=== PATIENT | female | born 1950 | race African-American/Black ===

== ENCOUNTER 2017-03-04 00:38 | Emergency (ER) | payer MEDICARE, MEDICAID ==
[~2017-03-04] VITALS: Ht 162.6 cm; Wt 84.0 kg
[2017-03-04 02:15] VITALS: BP 135/76
== END 2017-03-04 03:30 | disposition home or self-care (01) ==
LOC: ER 00:38
DX: M54.5 Low back pain (principal); I10 Essential (primary) hypertension; M32.9 Systemic lupus erythematosus, unspecified; Z98.890 Other specified postprocedural states; Z87.891 Personal history of nicotine dependence
CPT/HCPCS: 99281

== ENCOUNTER 2017-05-04 01:56 | Inpatient (IN) | payer MEDICARE, MEDICAID ==
[~2017-05-04] VITALS: Ht 162.6 cm; Wt 79.8 kg
[~2017-05-04 01:56] MED LIST: ATEN50TA PO; AZAT50TA24 PO; CALCIUM OYSTER SHELL PO; DAPSONE PO; FAMO20TA8 PO; FURO20TA4 PO; GABA-531 PO; NAPR-681 PO; NASOCORT
[2017-05-04] MEDS ORDERED: SODIUM CHLORIDE 0.9% 1,000 ML IV ONE (03:22)
[2017-05-04 03:49] LABS: BASOPHILS % 1.5 % (0.0-2.0); HEMATOCRIT. 35.3 % (36.0-48.0); HEMOGLOBIN. 11.6 g/dL (12.0-16.0); LYMPHOCYTES % 27.7 % (20.0-50.0); MEAN CORPUSCULAR HEMOGLOBIN 27.7 pg (28.0-32.0); MEAN CORPUSCULAR VOLUME 84.8 fL (81.0-99.0); MEAN PLATELET VOLUME 7.6 fl (7.4-10.4); MONOCYTES % 9.6 % (2.0-8.0); NEUTROPHILS % 59.2 % (40.0-76.0); PLATELET 298 x1000/uL (130-400); RED BLOOD CELL COUNT 4.16 mill/uL (4.2-5.4); RED CELL DISTRIBUTION WIDTH 16.4 % (11.6-14.6)
[2017-05-04 04:01] LABS: CARBON DIOXIDE 29 mEq/L (21-32); CHLORIDE 108 mEq/L (98-107)
[2017-05-04 04:04] LABS: TROPONIN I 0.03 ng/mL (0.00-0.04)
[2017-05-04 08:20] VITALS: BP 170/80
[2017-05-04] MEDS ORDERED: CLONIDINE 0.1MG TABLET PO PRN (11:15)
[2017-05-04] MEDS ORDERED: IPRATROPIUM/ALBUTEROL 0.5-3(2.5)MG/3ML NEB INH PRN (11:15)
[2017-05-04] MEDS ORDERED: DOCUSATE SODIUM 100MG CAPSULE PO PRN (11:15)
[2017-05-04] MEDS ORDERED: ACETAMINOPHEN 325MG TABLET PO PRN (11:15)
[2017-05-04 12:00] VITALS: BP 129/85
[2017-05-04] MEDS ORDERED: ENOXAPARIN 40MG/0.4ML SYR SUBCUT SCH (12:00)
[2017-05-04 16:00] VITALS: BP_SYST 140; BP_SYST 141; BP_SYST 150; BP_DIAS 81; BP_DIAS 86; BP_DIAS 90
[2017-05-04 17:22] LABS: CREATINE KINASE MB FRACTION 1.6 ng/mL (0.5-3.6); TROPONIN I 0.03 ng/mL (0.00-0.04)
[2017-05-04] MEDS: NAPROXEN 500MG TABLET PO SCH (18:29)
[2017-05-04 18:58] LABS: CLARITY URINE CLEAR (CLEAR); COLOR URINE YELLOW (YELLOW); GLUCOSE URINE NEGATIVE (NEGATIVE); KETONES URINE NEGATIVE (NEGATIVE); LEUKOCYTE ESTERASE URINE TRACE (NEGATIVE); NITRITE URINE NEGATIVE (NEGATIVE); OCCULT BLOOD URINE NEGATIVE (NEGATIVE); PROTEIN URINE NEGATIVE (NEGATIVE); SPECIFIC GRAVITY URINE 1.012 (1.005-1.030); UROBILINOGEN URINE 0.2 E.U./dL (0.2-1.0)
[2017-05-04 19:10] LABS: *AMPHETAMINES SCREEN URINE NEGATIVE (NEGATIVE); *BARBITURATES SCREEN URINE NEGATIVE (NEGATIVE); *BENZODIAZEPINES SCREEN URINE NEGATIVE (NEGATIVE); *COCAINE SCREEN URINE NEGATIVE (NEGATIVE); CANNABINOID URINE SCREEN NEGATIVE (NEGATIVE); METHADONE URINE SCREEN NEGATIVE (NEGATIVE); OPIATES URINE SCREEN NEGATIVE (NEGATIVE); PHENCYCLIDINE URINE SCREEN NEGATIVE (NEGATIVE)
[2017-05-04 20:00] VITALS: BP 125/70
[2017-05-05] VITALS: BP 121/71
[2017-05-05 00:28] LABS: CREATINE KINASE MB FRACTION 1.1 ng/mL (0.5-3.6); TROPONIN I 0.03 ng/mL (0.00-0.04)
[2017-05-05 04:00] VITALS: BP_SYST 146; BP_SYST 154; BP_SYST 159; BP_DIAS 86; BP_DIAS 87; BP_DIAS 96
[2017-05-05 08:00] VITALS: BP 151/93
[2017-05-05] MEDS ORDERED: AZATHIOPRINE 50MG TABLET PO SCH (09:00)
[2017-05-05] MEDS ORDERED: ATENOLOL 50 MG TABLET PO SCH (09:00)
[2017-05-05] MEDS ORDERED: FUROSEMIDE 20MG TABLET PO SCH ×2 (09:00)
[2017-05-05] MEDS ORDERED: DAPSONE 100MG TABLET PO SCH (09:00)
[2017-05-05] MEDS ORDERED: FAMOTIDINE 20MG TABLET PO SCH (09:00)
[2017-05-05] MEDS: NAPROXEN 500MG TABLET PO SCH (10:37)
[2017-05-05 12:00] VITALS: BP_SYST 117; BP_SYST 139; BP_SYST 147; BP_DIAS 77; BP_DIAS 83; BP_DIAS 89
[2017-05-05 16:00] VITALS: BP_SYST 130; BP_SYST 147; BP_DIAS 76; BP_DIAS 89
== END 2017-05-05 17:00 | disposition home or self-care (01) | DRG 312 ==
LOC: ER 02:24 → EDBEDREQ 05:19 → 6WST 05:26 → EDBEDREQ 05:49 → ENRESERV 07:06
PROVIDERS: ADMIT Internal Medicine Critical Care Medicine; ATTEND Internal Medicine Critical Care Medicine
DX: I95.1 Orthostatic hypotension (principal); M32.9 Systemic lupus erythematosus, unspecified; I11.9 Hypertensive heart disease without heart failure; G90.8 Other disorders of autonomic nervous system; G62.9 Polyneuropathy, unspecified; J44.9 Chronic obstructive pulmonary disease, unspecified; K21.9 Gastro-esophageal reflux disease without esophagitis; R29.6 Repeated falls; H93.13 Tinnitus, bilateral; M25.469 Effusion, unspecified knee; Z88.8 Allergy status to other drugs, medicaments and biological substances; Z88.2 Allergy status to sulfonamides; Z77.120 Contact with and (suspected) exposure to mold (toxic); Z79.899 Other long term (current) drug therapy
CPT/HCPCS: 36415; 70450; 71010; 80053; 80305; 81001; 82550; 82553; 83880; 84484; 85025; 93005; 96360; 97162; 99285; J1650; J7030; J7500

== ENCOUNTER → 2017-05-24 | Outpatient (CLI) | payer MEDICARE, MEDICAID ==
[~2017-05-24] MED LIST changes: -DAPSONE PO; -GABA-531 PO; -NASOCORT
== END | disposition home or self-care (01) ==
LOC: MRI 09:18
PROVIDERS: ATTEND Internal Medicine Critical Care Medicine
DX: M48.02 Spinal stenosis, cervical region (principal); M50.21 Other cervical disc displacement, high cervical region; M50.222 Other cervical disc displacement at C5-C6 level; M50.221 Other cervical disc displacement at C4-C5 level; M50.223 Other cervical disc displacement at C6-C7 level; R51 Headache
CPT/HCPCS: 70551; 72141

== ENCOUNTER 2017-08-10 08:46 | Emergency (ER) | payer MEDICARE, MEDICAID ==
[~2017-08-10] VITALS: Ht 162.6 cm; Wt 59.0 kg
[2017-08-10 08:52] VITALS: BP 159/92
== END 2017-08-10 11:35 | disposition home or self-care (01) ==
LOC: ER 08:58
DX: R05 Cough (principal); R50.9 Fever, unspecified; R42 Dizziness and giddiness; R06.02 Shortness of breath; R20.0 Anesthesia of skin; M32.9 Systemic lupus erythematosus, unspecified; Z87.891 Personal history of nicotine dependence; Z88.2 Allergy status to sulfonamides; Z88.8 Allergy status to other drugs, medicaments and biological substances
CPT/HCPCS: 71010; 87804; 99285

== ENCOUNTER 2017-10-06 15:11 | Inpatient (IN) | payer MEDICARE, MEDICAID ==
[~2017-10-06] VITALS: Ht 162.6 cm; Wt 72.6 kg
[2017-10-06 15:45] VITALS: BP 129/81
[2017-10-06] MEDS ORDERED: HYDROCODONE/ACETAMINOPHEN 5/325MG TABLET PO PRN (16:15)
[2017-10-06] MEDS: ACETAMINOPHEN 325MG TABLET PO PRN (16:52)
[2017-10-06] MEDS ORDERED: PROMETHAZINE HCL 25MG TABLET PO PRN (18:00)
[2017-10-06] MEDS ORDERED: ZOLPIDEM TARTRATE 5MG TABLET PO PRN (18:00)
[2017-10-06] MEDS ORDERED: LORAZEPAM 0.5MG TABLET PO PRN (18:00)
[2017-10-06] MEDS ORDERED: KETOROLAC 30MG/ML VIAL IV PRN (18:00)
[2017-10-06] MEDS: DICYCLOMINE HCL 20MG TABLET PO SCH ×2 (19:03→23:51)
[2017-10-06] MEDS: DOCUSATE SODIUM 100MG CAPSULE PO SCH (19:04)
[2017-10-06] MEDS: CEPHALEXIN 500MG CAPSULE PO SCH ×2 (19:04→23:51)
[2017-10-06 20:00] VITALS: BP 116/64
[2017-10-06] MEDS ORDERED: LACTATED RINGERS 1,000 ML IV ONE (20:00)
[2017-10-06] MEDS: CYCLOSPORINE, MODIFIED 25MG CAPSULE PO SCH (22:04)
[2017-10-06] MEDS: SUCRALFATE 1G TABLET PO SCH (22:04)
[2017-10-06] MEDS ORDERED: KETOROLAC 15MG/ML VIAL IV PRN (23:00)
[2017-10-07] MEDS: ACETAMINOPHEN 325MG TABLET PO PRN (02:13)
[2017-10-07 08:00] VITALS: BP 138/86
[2017-10-07] MEDS: DOCUSATE SODIUM 100MG CAPSULE PO SCH ×2 (08:36→18:02)
[2017-10-07] MEDS: PANTOPRAZOLE 40MG DR TABLET PO SCH (08:37)
[2017-10-07] MEDS: ATENOLOL 50 MG TABLET PO SCH (08:38)
[2017-10-07] MEDS: CEPHALEXIN 500MG CAPSULE PO SCH ×4 (08:39→21:43)
[2017-10-07] MEDS: PREDNISONE 20MG TABLET PO SCH (08:40)
[2017-10-07] MEDS: DICYCLOMINE HCL 20MG TABLET PO SCH ×4 (08:40→21:43)
[2017-10-07] MEDS: SUCRALFATE 1G TABLET PO SCH ×4 (08:41→21:43)
[2017-10-07] MEDS: SCOPOLAMINE HYDROBROMIDE PATCH 72HR TD SCH (08:43)
[2017-10-07 09:19] LABS: BASOPHILS % 0.4 % (0.0-2.0); EOSINOPHILS % 1.5 % (0.0-5.0); HEMATOCRIT. 27.3 % (36.0-48.0); HEMOGLOBIN. 8.8 g/dL (12.0-16.0); LYMPHOCYTES % 14.6 % (20.0-50.0); MEAN CORPUSCULAR HEMOGLOBIN 28.8 pg (28.0-32.0); MEAN CORPUSCULAR VOLUME 89.4 fL (81.0-99.0); MEAN PLATELET VOLUME 8.3 fl (7.4-10.4); NEUTROPHILS % 71.5 % (40.0-76.0); PLATELET 219 x1000/uL (130-400); RED BLOOD CELL COUNT 3.06 mill/uL (4.2-5.4); RED CELL DISTRIBUTION WIDTH 15.5 % (11.6-14.6)
[2017-10-07 09:39] LABS: CHLORIDE 107 mEq/L (98-107)
[2017-10-07 09:46] LABS: PREALBUMIN 6.1 mg/dL (20.0-40.0)
[2017-10-07] MEDS: CYCLOSPORINE, MODIFIED 25MG CAPSULE PO SCH ×2 (12:37→21:43)
[2017-10-07] MEDS: LACTULOSE 20G/30ML UDC PO SCH ×2 (12:42→16:00)
[2017-10-07] MEDS ORDERED: DOCUSATE SODIUM 100MG CAPSULE PO SCH (17:00)
[2017-10-07] MEDS ORDERED: BISACODYL 10MG SUPP PR SCH (18:00)
[2017-10-07 20:53] VITALS: BP 145/87
[2017-10-07] MEDS: POLYETHYLENE GLYCOL 3350 (17GM) 1 DOSE PACK PO SCH (21:00)
[2017-10-08 08:00] VITALS: BP 128/65
[2017-10-08] MEDS: DOCUSATE SODIUM 100MG CAPSULE PO SCH ×2 (09:00→17:00)
[2017-10-08] MEDS: CYCLOSPORINE, MODIFIED 25MG CAPSULE PO SCH ×2 (09:29→22:32)
[2017-10-08] MEDS: PANTOPRAZOLE 40MG DR TABLET PO SCH (09:30)
[2017-10-08] MEDS: SUCRALFATE 1G TABLET PO SCH ×4 (09:30→22:31)
[2017-10-08] MEDS: DICYCLOMINE HCL 20MG TABLET PO SCH ×4 (09:31→22:32)
[2017-10-08] MEDS: PREDNISONE 20MG TABLET PO SCH (09:31)
[2017-10-08] MEDS: CEPHALEXIN 500MG CAPSULE PO SCH ×4 (09:31→22:32)
[2017-10-08] MEDS: ATENOLOL 50 MG TABLET PO SCH (09:33)
[2017-10-08] MEDS: ACETAMINOPHEN 325MG TABLET PO PRN (09:34)
[2017-10-08 20:00] VITALS: BP 132/73
[2017-10-08] MEDS: POLYETHYLENE GLYCOL 3350 (17GM) 1 DOSE PACK PO SCH (21:00)
[2017-10-08] MEDS: ENOXAPARIN 40MG/0.4ML SYR SUBCUT SCH (22:31)
[2017-10-09 07:20] LABS: BASOPHILS % 0.4 % (0.0-2.0); EOSINOPHILS % 1.7 % (0.0-5.0); HEMATOCRIT. 24.9 % (36.0-48.0); HEMOGLOBIN. 8.1 g/dL (12.0-16.0); LYMPHOCYTES % 24.6 % (20.0-50.0); MEAN CORPUSCULAR HEMOGLOBIN 28.6 pg (28.0-32.0); MEAN PLATELET VOLUME 8.1 fl (7.4-10.4); MONOCYTES % 12.9 % (2.0-8.0); NEUTROPHILS % 60.4 % (40.0-76.0); PLATELET 283 x1000/uL (130-400); RED BLOOD CELL COUNT 2.83 mill/uL (4.2-5.4); RED CELL DISTRIBUTION WIDTH 15.6 % (11.6-14.6)
[2017-10-09 07:51] LABS: CHLORIDE 107 mEq/L (98-107)
[2017-10-09 08:00] VITALS: BP 140/89
[2017-10-09 08:02] LABS: PHOSPHORUS 2.3 mg/dL (2.5-4.9); TOTAL IRON BINDING CAPACITY 154 ug/dL (250-450)
[2017-10-09 08:07] LABS: FOLIC ACID (FOLATE) SERUM 5.5 ng/mL (>5.38)
[2017-10-09] MEDS: CYCLOSPORINE, MODIFIED 25MG CAPSULE PO SCH ×2 (08:13→22:15)
[2017-10-09] MEDS: CEPHALEXIN 500MG CAPSULE PO SCH ×4 (08:13→22:14)
[2017-10-09] MEDS: PANTOPRAZOLE 40MG DR TABLET PO SCH (08:14)
[2017-10-09] MEDS: DICYCLOMINE HCL 20MG TABLET PO SCH ×4 (08:14→22:15)
[2017-10-09] MEDS: SUCRALFATE 1G TABLET PO SCH ×4 (08:14→22:15)
[2017-10-09] MEDS: DOCUSATE SODIUM 100MG CAPSULE PO SCH ×2 (08:14→17:03)
[2017-10-09] MEDS: ATENOLOL 50 MG TABLET PO SCH (08:14)
[2017-10-09] MEDS: PREDNISONE 20MG TABLET PO SCH (08:14)
[2017-10-09 08:16] LABS: CLARITY URINE CLEAR (CLEAR); COLOR URINE YELLOW (YELLOW); KETONES URINE NEGATIVE (NEGATIVE); LEUKOCYTE ESTERASE URINE 2+ (NEGATIVE); NITRITE URINE NEGATIVE (NEGATIVE); OCCULT BLOOD URINE NEGATIVE (NEGATIVE); PH URINE 5.5 (4.5-8.0); PROTEIN URINE NEGATIVE (NEGATIVE); SPECIFIC GRAVITY URINE 1.018 (1.005-1.030)
[2017-10-09] MEDS: ACETAMINOPHEN 325MG TABLET PO PRN (08:22)
[2017-10-09] MEDS ORDERED: POTASSIUM CHLORIDE 20MEQ TABLET SR PO NR (14:45)
[2017-10-09] MEDS: POTASSIUM-SODIUM PHOSPHATE POWDER PACKET PO SCH ×2 (15:12→17:03)
[2017-10-09] MEDS: AMOXICILLIN 500 MG CAPSULE PO SCH ×2 (17:03→22:14)
[2017-10-09 20:00] VITALS: BP 122/70
[2017-10-09] MEDS: POLYETHYLENE GLYCOL 3350 (17GM) 1 DOSE PACK PO SCH (21:00)
[2017-10-09] MEDS: IRON SUCROSE COMPLEX 100 MG in SODIUM CHLORIDE 0.9% 100 ML IV SCH (22:13)
[2017-10-09] MEDS: ENOXAPARIN 40MG/0.4ML SYR SUBCUT SCH (22:16)
[2017-10-10 06:31] LABS: BASOPHILS % 0.4 % (0.0-2.0); EOSINOPHILS % 1.4 % (0.0-5.0); HEMATOCRIT. 25.8 % (36.0-48.0); HEMOGLOBIN. 8.5 g/dL (12.0-16.0); LYMPHOCYTES % 26.5 % (20.0-50.0); MEAN CORPUSCULAR HEMOGLOBIN 29.1 pg (28.0-32.0); MEAN CORPUSCULAR VOLUME 88.4 fL (81.0-99.0); MEAN PLATELET VOLUME 8.1 fl (7.4-10.4); MONOCYTES % 11.6 % (2.0-8.0); NEUTROPHILS % 60.1 % (40.0-76.0); PLATELET 316 x1000/uL (130-400); RED BLOOD CELL COUNT 2.92 mill/uL (4.2-5.4); RED CELL DISTRIBUTION WIDTH 15.9 % (11.6-14.6)
[2017-10-10 06:48] LABS: CHLORIDE 106 mEq/L (98-107)
[2017-10-10 08:00] VITALS: BP 151/84
[2017-10-10] MEDS: DOCUSATE SODIUM 100MG CAPSULE PO SCH ×2 (09:57→17:00)
[2017-10-10] MEDS: CEPHALEXIN 500MG CAPSULE PO SCH ×4 (09:57→21:18)
[2017-10-10] MEDS: SUCRALFATE 1G TABLET PO SCH ×4 (09:58→21:18)
[2017-10-10] MEDS: PREDNISONE 20MG TABLET PO SCH (09:58)
[2017-10-10] MEDS: PANTOPRAZOLE 40MG DR TABLET PO SCH (09:58)
[2017-10-10] MEDS: CYCLOSPORINE, MODIFIED 25MG CAPSULE PO SCH ×2 (09:58→21:20)
[2017-10-10] MEDS: ATENOLOL 50 MG TABLET PO SCH (10:02)
[2017-10-10] MEDS: DICYCLOMINE HCL 20MG TABLET PO SCH ×4 (10:02→21:19)
[2017-10-10] MEDS: ACETAMINOPHEN 325MG TABLET PO PRN (10:02)
[2017-10-10] MEDS: SCOPOLAMINE HYDROBROMIDE PATCH 72HR TD SCH (10:03)
[2017-10-10] MEDS: POTASSIUM-SODIUM PHOSPHATE POWDER PACKET PO SCH (10:22)
[2017-10-10] MEDS: AMOXICILLIN 500 MG CAPSULE PO SCH ×2 (10:22→17:54)
[2017-10-10] MEDS: LACTULOSE 20G/30ML UDC PO SCH ×2 (16:15→20:15)
[2017-10-10 20:00] VITALS: BP 149/75
[2017-10-10] MEDS: POLYETHYLENE GLYCOL 3350 (17GM) 1 DOSE PACK PO SCH (21:00)
[2017-10-10] MEDS: IRON SUCROSE COMPLEX 100 MG in SODIUM CHLORIDE 0.9% 100 ML IV SCH (21:18)
[2017-10-10] MEDS: ENOXAPARIN 40MG/0.4ML SYR SUBCUT SCH (21:22)
[2017-10-11] MEDS: AMOXICILLIN 500 MG CAPSULE PO SCH ×3 (01:17→17:37)
[2017-10-11] MEDS: ACETAMINOPHEN 325MG TABLET PO PRN (03:52)
[2017-10-11 07:01] LABS: HEMATOCRIT. 23.8 % (36.0-48.0); HEMOGLOBIN. 7.8 g/dL (12.0-16.0); MEAN CORPUSCULAR HEMOGLOBIN 29.4 pg (28.0-32.0); MEAN CORPUSCULAR VOLUME 89.5 fL (81.0-99.0); MEAN PLATELET VOLUME 8.1 fl (7.4-10.4); PLATELET 325 x1000/uL (130-400); RED BLOOD CELL COUNT 2.66 mill/uL (4.2-5.4); RED CELL DISTRIBUTION WIDTH 15.9 % (11.6-14.6)
[2017-10-11 08:00] VITALS: BP 128/66
[2017-10-11] MEDS: DOCUSATE SODIUM 100MG CAPSULE PO SCH (08:53)
[2017-10-11] MEDS: SUCRALFATE 1G TABLET PO SCH ×4 (08:53→20:46)
[2017-10-11] MEDS: CEPHALEXIN 500MG CAPSULE PO SCH ×4 (08:54→20:46)
[2017-10-11] MEDS: PANTOPRAZOLE 40MG DR TABLET PO SCH (08:54)
[2017-10-11] MEDS: PREDNISONE 20MG TABLET PO SCH (08:54)
[2017-10-11] MEDS: ATENOLOL 50 MG TABLET PO SCH (08:55)
[2017-10-11] MEDS: CYCLOSPORINE, MODIFIED 25MG CAPSULE PO SCH ×2 (08:55→20:46)
[2017-10-11] MEDS: DICYCLOMINE HCL 20MG TABLET PO SCH ×4 (08:56→20:46)
[2017-10-11 13:41] LABS: NUCLEATED RED BLOOD CELLS 1 /100 WBC; PLATELET ESTIMATE NORMAL
[2017-10-11] MEDS: FAMOTIDINE 20MG TABLET PO SCH (17:37)
[2017-10-11 19:07] LABS: RNP ANTIBODY 0.2 AI (0.0-0.9); SMITH ANTIBODY < 0.2 AI (0.0-0.9)
[2017-10-11 20:00] VITALS: BP 143/84
[2017-10-11] MEDS ORDERED: LORAZEPAM 0.5MG TABLET PO PRN (20:15)
[2017-10-11] MEDS: ENOXAPARIN 40MG/0.4ML SYR SUBCUT SCH (20:46)
[2017-10-11] MEDS: IRON SUCROSE COMPLEX 100 MG in SODIUM CHLORIDE 0.9% 100 ML IV SCH (20:46)
[2017-10-12] MEDS: ACETAMINOPHEN 325MG TABLET PO PRN ×2 (01:44→08:26)
[2017-10-12] MEDS: AMOXICILLIN 500 MG CAPSULE PO SCH ×2 (01:44→10:52)
[2017-10-12 05:14] LABS: ANTI-DNA DOUBLE STRANDED QUANT 55 IU/mL (0-9)
[2017-10-12] MEDS: DOCUSATE SODIUM 100MG CAPSULE PO SCH ×2 (05:51→05:53)
[2017-10-12 08:00] VITALS: BP 142/86
[2017-10-12] MEDS: SUCRALFATE 1G TABLET PO SCH ×4 (08:21→20:59)
[2017-10-12] MEDS: CEPHALEXIN 500MG CAPSULE PO SCH ×3 (08:21→17:19)
[2017-10-12] MEDS: DICYCLOMINE HCL 20MG TABLET PO SCH ×4 (08:22→20:59)
[2017-10-12] MEDS: PREDNISONE 20MG TABLET PO SCH (08:22)
[2017-10-12] MEDS: ATENOLOL 50 MG TABLET PO SCH (08:22)
[2017-10-12] MEDS: FAMOTIDINE 20MG TABLET PO SCH ×2 (08:22→17:19)
[2017-10-12] MEDS: CYCLOSPORINE, MODIFIED 25MG CAPSULE PO SCH ×2 (08:23→20:59)
[2017-10-12 14:19] LABS: ANA IFA Negative (.)
[2017-10-12 20:00] VITALS: BP 136/76
[2017-10-12] MEDS: ENOXAPARIN 40MG/0.4ML SYR SUBCUT SCH (20:59)
[2017-10-12] MEDS: IRON SUCROSE COMPLEX 100 MG in SODIUM CHLORIDE 0.9% 100 ML IV SCH (20:59)
[2017-10-13] MEDS: DOCUSATE SODIUM 100MG CAPSULE PO SCH (05:31)
[2017-10-13 08:00] VITALS: BP 156/86
[2017-10-13] MEDS: PREDNISONE 20MG TABLET PO SCH (08:11)
[2017-10-13] MEDS: SUCRALFATE 1G TABLET PO SCH ×4 (08:11→21:30)
[2017-10-13] MEDS: FAMOTIDINE 20MG TABLET PO SCH ×2 (08:12→17:30)
[2017-10-13] MEDS: DICYCLOMINE HCL 20MG TABLET PO SCH ×4 (08:12→21:30)
[2017-10-13] MEDS: ATENOLOL 50 MG TABLET PO SCH (08:12)
[2017-10-13] MEDS: CYCLOSPORINE, MODIFIED 25MG CAPSULE PO SCH ×2 (08:13→20:28)
[2017-10-13] MEDS: SCOPOLAMINE HYDROBROMIDE PATCH 72HR TD SCH (08:17)
[2017-10-13 08:22] LABS: BASOPHILS % 0.2 % (0.0-2.0); EOSINOPHILS % 1.2 % (0.0-5.0); HEMATOCRIT. 26.9 % (36.0-48.0); HEMOGLOBIN. 8.4 g/dL (12.0-16.0); LYMPHOCYTES % 28.9 % (20.0-50.0); MEAN CORPUSCULAR HEMOGLOBIN 27.9 pg (28.0-32.0); MEAN CORPUSCULAR VOLUME 89.3 fL (81.0-99.0); MEAN PLATELET VOLUME 7.5 fl (7.4-10.4); NEUTROPHILS % 60.7 % (40.0-76.0); PLATELET 455 x1000/uL (130-400); RED BLOOD CELL COUNT 3.01 mill/uL (4.2-5.4); RED CELL DISTRIBUTION WIDTH 16.1 % (11.6-14.6)
[2017-10-13 08:52] LABS: CHLORIDE 105 mEq/L (98-107)
[2017-10-13] MEDS: ACETAMINOPHEN 325MG TABLET PO PRN (09:12)
[2017-10-13 20:00] VITALS: BP 151/82
[2017-10-13] MEDS: ENOXAPARIN 40MG/0.4ML SYR SUBCUT SCH (20:28)
[2017-10-13] MEDS: IRON SUCROSE COMPLEX 100 MG in SODIUM CHLORIDE 0.9% 100 ML IV SCH (21:30)
[2017-10-14 04:09] LABS: 25-HYDROXY VITAMIN D3 2.9 ng/mL (.)
[2017-10-14] MEDS: DOCUSATE SODIUM 100MG CAPSULE PO SCH (05:49)
[2017-10-14 08:00] VITALS: BP 161/85
[2017-10-14] MEDS: ACETAMINOPHEN 325MG TABLET PO PRN ×2 (08:01→14:29)
[2017-10-14] MEDS: SUCRALFATE 1G TABLET PO SCH ×4 (08:01→21:43)
[2017-10-14] MEDS: FAMOTIDINE 20MG TABLET PO SCH ×2 (08:01→17:01)
[2017-10-14] MEDS: DICYCLOMINE HCL 20MG TABLET PO SCH ×4 (08:02→21:43)
[2017-10-14] MEDS: PREDNISONE 20MG TABLET PO SCH (08:02)
[2017-10-14] MEDS: CYCLOSPORINE, MODIFIED 25MG CAPSULE PO SCH ×2 (08:03→21:43)
[2017-10-14] MEDS: ATENOLOL 50 MG TABLET PO SCH (08:04)
[2017-10-14 20:00] VITALS: BP 136/71
[2017-10-14] MEDS: ENOXAPARIN 40MG/0.4ML SYR SUBCUT SCH (21:44)
[2017-10-15] MEDS: DOCUSATE SODIUM 100MG CAPSULE PO SCH (05:30)
[2017-10-15 08:00] VITALS: BP 174/91
[2017-10-15] MEDS: CYCLOSPORINE, MODIFIED 25MG CAPSULE PO SCH ×2 (09:21→21:23)
[2017-10-15] MEDS: SUCRALFATE 1G TABLET PO SCH ×4 (09:21→21:23)
[2017-10-15] MEDS: FAMOTIDINE 20MG TABLET PO SCH (09:22)
[2017-10-15] MEDS: DICYCLOMINE HCL 20MG TABLET PO SCH ×4 (09:22→21:23)
[2017-10-15] MEDS: ATENOLOL 50 MG TABLET PO SCH (09:23)
[2017-10-15] MEDS: ACETAMINOPHEN 325MG TABLET PO PRN (11:25)
[2017-10-15] MEDS: METRONIDAZOLE 250MG TABLET PO SCH ×2 (13:00→17:16)
[2017-10-15] MEDS ORDERED: ERGOCALCIFEROL 50000UNITS CAPSULE PO SCH (17:00)
[2017-10-15 20:00] VITALS: BP 116/68
[2017-10-15] MEDS: ENOXAPARIN 40MG/0.4ML SYR SUBCUT SCH (21:22)
[2017-10-16] MEDS: METRONIDAZOLE 250MG TABLET PO SCH ×4 (00:05→17:41)
[2017-10-16 07:18] LABS: BASOPHILS % 0.7 % (0.0-2.0); EOSINOPHILS % 1.9 % (0.0-5.0); HEMATOCRIT. 28.3 % (36.0-48.0); HEMOGLOBIN. 9.1 g/dL (12.0-16.0); LYMPHOCYTES % 22.5 % (20.0-50.0); MEAN CORPUSCULAR HEMOGLOBIN 29.2 pg (28.0-32.0); MEAN CORPUSCULAR VOLUME 90.9 fL (81.0-99.0); MEAN PLATELET VOLUME 7.4 fl (7.4-10.4); MONOCYTES % 8.3 % (2.0-8.0); NEUTROPHILS % 66.6 % (40.0-76.0); PLATELET 461 x1000/uL (130-400); RED BLOOD CELL COUNT 3.11 mill/uL (4.2-5.4); RED CELL DISTRIBUTION WIDTH 17.6 % (11.6-14.6)
[2017-10-16 07:29] LABS: CHLORIDE 104 mEq/L (98-107)
[2017-10-16 08:00] VITALS: BP 139/82
[2017-10-16] MEDS: ATENOLOL 50 MG TABLET PO SCH (09:07)
[2017-10-16] MEDS: CYCLOSPORINE, MODIFIED 25MG CAPSULE PO SCH ×2 (09:07→20:38)
[2017-10-16] MEDS: SUCRALFATE 1G TABLET PO SCH ×2 (09:08→12:30)
[2017-10-16] MEDS: PREDNISONE 20MG TABLET PO SCH (09:09)
[2017-10-16] MEDS: DICYCLOMINE HCL 20MG TABLET PO SCH ×4 (09:09→20:38)
[2017-10-16] MEDS: SCOPOLAMINE HYDROBROMIDE PATCH 72HR TD SCH (09:11)
[2017-10-16] MEDS: ACETAMINOPHEN 325MG TABLET PO PRN (09:12)
[2017-10-16 20:00] VITALS: BP 122/78
[2017-10-16] MEDS: ENOXAPARIN 40MG/0.4ML SYR SUBCUT SCH (20:37)
[2017-10-17] MEDS: METRONIDAZOLE 250MG TABLET PO SCH ×3 (00:41→12:22)
[2017-10-17] MEDS: ACETAMINOPHEN 325MG TABLET PO PRN (05:38)
[2017-10-17 08:00] VITALS: BP 148/82
[2017-10-17] MEDS: PREDNISONE 20MG TABLET PO SCH (08:37)
[2017-10-17] MEDS: DICYCLOMINE HCL 20MG TABLET PO SCH ×2 (08:38→12:22)
[2017-10-17] MEDS: CYCLOSPORINE, MODIFIED 25MG CAPSULE PO SCH (08:38)
[2017-10-17] MEDS: ATENOLOL 50 MG TABLET PO SCH (08:39)
[2017-10-17 11:05] VITALS: BP 140/80
[2017-10-18 05:26] LABS: COMPLEMENT C3 137 mg/dL (82-167)
== END 2017-10-17 13:23 | disposition home health service (06) | DRG 554 ==
LOC: UNDOADMIN 15:44
PROVIDERS: ADMIT Physical Medicine & Rehabilitation Spinal Cord Injury Medicine; ATTEND Internal Medicine Critical Care Medicine
DX: M17.11 Unilateral primary osteoarthritis, right knee (principal); E46 Unspecified protein-calorie malnutrition; M32.9 Systemic lupus erythematosus, unspecified; K56.7 Ileus, unspecified; E87.1 Hypo-osmolality and hyponatremia; F33.1 Major depressive disorder, recurrent, moderate; E83.39 Other disorders of phosphorus metabolism; Z96.651 Presence of right artificial knee joint; R50.82 Postprocedural fever; Z82.49 Family history of ischemic heart disease and other diseases of the circulatory system; Z87.891 Personal history of nicotine dependence; K21.9 Gastro-esophageal reflux disease without esophagitis; J45.909 Unspecified asthma, uncomplicated; J42 Unspecified chronic bronchitis; I10 Essential (primary) hypertension; Z88.2 Allergy status to sulfonamides; Z88.1 Allergy status to other antibiotic agents; Z88.8 Allergy status to other drugs, medicaments and biological substances; E66.9 Obesity, unspecified; Z68.27 Body mass index [BMI] 27.0-27.9, adult; R62.7 Adult failure to thrive; K29.70 Gastritis, unspecified, without bleeding; J44.9 Chronic obstructive pulmonary disease, unspecified; R53.81 Other malaise; M79.609 Pain in unspecified limb; R26.9 Unspecified abnormalities of gait and mobility; E87.6 Hypokalemia; D50.9 Iron deficiency anemia, unspecified; J34.0 Abscess, furuncle and carbuncle of nose; L93.0 Discoid lupus erythematosus; L56.8 Other specified acute skin changes due to ultraviolet radiation; M13.0 Polyarthritis, unspecified; D72.810 Lymphocytopenia; K59.00 Constipation, unspecified; I49.9 Cardiac arrhythmia, unspecified; D72.829 Elevated white blood cell count, unspecified; H93.19 Tinnitus, unspecified ear; F41.9 Anxiety disorder, unspecified
CPT/HCPCS: 36415; 73560; 80048; 80053; 81003; 82270; 82306; 82607; 82728; 82746; 82962; 83540; 83550; 83735; 84100; 84134; 84443; 84630; 85025; 86160; 86225; 86235; 86256; 87086; 93922; 93970; 97110; 97116; 97162; 97167; 97530; 97535; J1650; J7040; J7050; J7120; J7512; J7515

== ENCOUNTER 2018-05-09 16:45 | Inpatient (IN) | payer MEDICARE, MEDICAID ==
[~2018-05-09] VITALS: Ht 162.6 cm; Wt 76.7 kg
[2018-05-09 17:00] VITALS: BP 136/84
[2018-05-09] MEDS ORDERED: IPRATROPIUM/ALBUTEROL 0.5-3(2.5)MG/3ML NEB HHN PRN (18:00)
[2018-05-09] MEDS ORDERED: ONDANSETRON HCL 4MG/2ML INJ IV PRN (18:00)
[2018-05-09] MEDS ORDERED: ACETAMINOPHEN 325MG TABLET PO PRN (18:00)
[2018-05-09 19:08] VITALS: BP 136/84
[2018-05-09 20:00] VITALS: BP 110/67
[2018-05-10] MEDS: HYDROCODONE/ACETAMINOPHEN 5/325MG TABLET PO PRN ×2 (00:41→18:43)
[2018-05-10 08:18] LABS: BASOPHILS % 0.2 % (0.0-2.0); EOSINOPHILS % 0.7 % (0.0-5.0); HEMATOCRIT. 34.6 % (36.0-48.0); HEMOGLOBIN. 11.4 g/dL (12.0-16.0); MEAN CORPUSCULAR HEMOGLOBIN 29.1 pg (28.0-32.0); MEAN CORPUSCULAR VOLUME 88.5 fL (81.0-99.0); MEAN PLATELET VOLUME 7.2 fl (7.4-10.4); MONOCYTES % 4.5 % (2.0-8.0); NEUTROPHILS % 82.6 % (40.0-76.0); PLATELET 275 x1000/uL (130-400); RED BLOOD CELL COUNT 3.91 mill/uL (4.2-5.4); RED CELL DISTRIBUTION WIDTH 17.2 % (11.6-14.6)
[2018-05-10 08:25] VITALS: BP 101/70
[2018-05-10 08:51] LABS: CHLORIDE 101 mEq/L (98-107)
[2018-05-10] MEDS: FAMOTIDINE 20MG TABLET PO SCH (09:00)
[2018-05-10] MEDS: DOCUSATE SODIUM 100MG CAPSULE PO SCH ×2 (09:40→18:41)
[2018-05-10] MEDS: FOLIC ACID 1MG TABLET PO SCH (09:40)
[2018-05-10] MEDS: ASPIRIN 325MG TABLET PO SCH (09:40)
[2018-05-10] MEDS ORDERED: BISACODYL 10MG SUPP PR NR (09:45)
[2018-05-10] MEDS ORDERED: BISACODYL 5MG TABLET PO PRN (09:45)
[2018-05-10] MEDS: ATENOLOL 50 MG TABLET PO SCH (09:47)
[2018-05-10] MEDS: AMLODIPINE 10MG TABLET PO SCH (09:47)
[2018-05-10] MEDS: ENOXAPARIN 40MG/0.4ML SYR SUBCUT SCH (18:41)
[2018-05-10] MEDS: LACTULOSE 20G/30ML UDC PO SCH ×3 (18:42→21:00)
[2018-05-10 20:00] VITALS: BP 109/64
[2018-05-10] MEDS: POLYETHYLENE GLYCOL 3350 (17GM) 1 DOSE PACK PO SCH (21:00)
[2018-05-11] MEDS ORDERED: BISACODYL 10MG SUPP PR SCH (04:30)
[2018-05-11] MEDS: HYDROCODONE/ACETAMINOPHEN 5/325MG TABLET PO PRN (06:52)
[2018-05-11 08:00] VITALS: BP 109/69
[2018-05-11] MEDS: AMLODIPINE 10MG TABLET PO SCH (09:00)
[2018-05-11] MEDS: ATENOLOL 50 MG TABLET PO SCH (09:00)
[2018-05-11 09:17] LABS: CLARITY URINE CLOUDY (CLEAR); COLOR URINE YELLOW (YELLOW); KETONES URINE TRACE (NEGATIVE); LEUKOCYTE ESTERASE URINE 1+ (NEGATIVE); NITRITE URINE NEGATIVE (NEGATIVE); OCCULT BLOOD URINE NEGATIVE (NEGATIVE); PROTEIN URINE 1+ (NEGATIVE); SPECIFIC GRAVITY URINE 1.024 (1.005-1.030); UROBILINOGEN URINE 0.2 E.U./dL (0.2-1.0)
[2018-05-11] MEDS: LACTULOSE 20G/30ML UDC PO SCH ×2 (09:44→13:00)
[2018-05-11] MEDS: DOCUSATE SODIUM 100MG CAPSULE PO SCH ×2 (09:45→17:00)
[2018-05-11] MEDS: FAMOTIDINE 20MG TABLET PO SCH (09:45)
[2018-05-11] MEDS: FOLIC ACID 1MG TABLET PO SCH (09:45)
[2018-05-11] MEDS: ASPIRIN 325MG TABLET PO SCH (09:45)
[2018-05-11 15:46] LABS: BASOPHILS % 0.6 % (0.0-2.0); EOSINOPHILS % 2.3 % (0.0-5.0); HEMATOCRIT. 33.9 % (36.0-48.0); HEMOGLOBIN. 11.4 g/dL (12.0-16.0); LYMPHOCYTES % 18.6 % (20.0-50.0); MEAN CORPUSCULAR HEMOGLOBIN 29.6 pg (28.0-32.0); MEAN CORPUSCULAR VOLUME 88.3 fL (81.0-99.0); MEAN PLATELET VOLUME 7.6 fl (7.4-10.4); MONOCYTES % 8.5 % (2.0-8.0); PLATELET 318 x1000/uL (130-400); RED BLOOD CELL COUNT 3.84 mill/uL (4.2-5.4); RED CELL DISTRIBUTION WIDTH 17.4 % (11.6-14.6)
[2018-05-11] MEDS: ENOXAPARIN 40MG/0.4ML SYR SUBCUT SCH (17:25)
[2018-05-11 20:00] VITALS: BP 118/66
[2018-05-11] MEDS: POLYETHYLENE GLYCOL 3350 (17GM) 1 DOSE PACK PO SCH (20:17)
[2018-05-12 08:00] VITALS: BP 118/69
[2018-05-12] MEDS: ATENOLOL 50 MG TABLET PO SCH (09:00)
[2018-05-12] MEDS: HYDROCODONE/ACETAMINOPHEN 5/325MG TABLET PO PRN ×2 (09:38→21:24)
[2018-05-12] MEDS: DOCUSATE SODIUM 100MG CAPSULE PO SCH ×2 (09:38→17:08)
[2018-05-12] MEDS: FOLIC ACID 1MG TABLET PO SCH (09:38)
[2018-05-12] MEDS: FAMOTIDINE 20MG TABLET PO SCH (09:39)
[2018-05-12] MEDS: AMLODIPINE 10MG TABLET PO SCH (09:41)
[2018-05-12] MEDS: ASPIRIN 325MG TABLET PO SCH (09:45)
[2018-05-12 09:55] LABS: FOLIC ACID (FOLATE) SERUM >20 ng/mL ng/mL (>5.38)
[2018-05-12 10:00] LABS: FERRITIN 272 ng/mL (10-291)
[2018-05-12 10:06] LABS: VITAMIN B12 SERUM 391 pg/mL (211-911)
[2018-05-12] MEDS: CYANOCOBALAMIN 1000MCG/ML VIAL IM SCH (12:53)
[2018-05-12] MEDS: LIDOCAINE 5% PATCH TOP SCH (12:54)
[2018-05-12] MEDS: ENOXAPARIN 40MG/0.4ML SYR SUBCUT SCH (17:08)
[2018-05-12 17:58] LABS: BASOPHILS % 0.7 % (0.0-2.0); EOSINOPHILS % 2.9 % (0.0-5.0); HEMATOCRIT. 31.7 % (36.0-48.0); HEMOGLOBIN. 10.6 g/dL (12.0-16.0); LYMPHOCYTES % 20.6 % (20.0-50.0); MEAN CORPUSCULAR HEMOGLOBIN 29.7 pg (28.0-32.0); MEAN CORPUSCULAR VOLUME 88.9 fL (81.0-99.0); MEAN PLATELET VOLUME 7.1 fl (7.4-10.4); NEUTROPHILS % 61.8 % (40.0-76.0); PLATELET 319 x1000/uL (130-400); RED BLOOD CELL COUNT 3.56 mill/uL (4.2-5.4); RED CELL DISTRIBUTION WIDTH 17.1 % (11.6-14.6)
[2018-05-12 18:06] LABS: CHLORIDE 103 mEq/L (98-107)
[2018-05-12 18:11] LABS: PHOSPHORUS 3.4 mg/dL (2.5-4.9)
[2018-05-12 18:12] LABS: TOTAL IRON BINDING CAPACITY 173 ug/dL (250-450)
[2018-05-12 20:00] VITALS: BP 113/72
[2018-05-12] MEDS: POLYETHYLENE GLYCOL 3350 (17GM) 1 DOSE PACK PO SCH (20:53)
[2018-05-12] MEDS: NITROFURANTOIN 100MG M/M CAPSULE PO SCH (21:22)
[2018-05-13 07:00] VITALS: BP 132/75
[2018-05-13] MEDS: DOCUSATE SODIUM 100MG CAPSULE PO SCH ×2 (08:30→16:51)
[2018-05-13] MEDS: NITROFURANTOIN 100MG M/M CAPSULE PO SCH ×2 (08:30→20:42)
[2018-05-13] MEDS: ATENOLOL 50 MG TABLET PO SCH (08:30)
[2018-05-13] MEDS: FOLIC ACID 1MG TABLET PO SCH (08:30)
[2018-05-13] MEDS: ASPIRIN 325MG TABLET PO SCH (08:30)
[2018-05-13] MEDS: FAMOTIDINE 20MG TABLET PO SCH (08:31)
[2018-05-13] MEDS: AMLODIPINE 10MG TABLET PO SCH (08:31)
[2018-05-13] MEDS: HYDROCODONE/ACETAMINOPHEN 5/325MG TABLET PO PRN ×2 (08:32→15:38)
[2018-05-13] MEDS: LIDOCAINE 5% PATCH TOP SCH (08:34)
[2018-05-13] MEDS: CYANOCOBALAMIN 1000MCG/ML VIAL IM SCH (08:48)
[2018-05-13] MEDS: ENOXAPARIN 40MG/0.4ML SYR SUBCUT SCH (16:51)
[2018-05-13 20:00] VITALS: BP 129/75
[2018-05-13] MEDS: POLYETHYLENE GLYCOL 3350 (17GM) 1 DOSE PACK PO SCH (20:43)
[2018-05-14] MEDS: HYDROCODONE/ACETAMINOPHEN 5/325MG TABLET PO PRN ×3 (01:45→14:39)
[2018-05-14 08:00] VITALS: BP 118/77
[2018-05-14] MEDS: AMLODIPINE 10MG TABLET PO SCH (09:00)
[2018-05-14] MEDS: ATENOLOL 50 MG TABLET PO SCH (09:00)
[2018-05-14 09:20] VITALS: BP 109/64
[2018-05-14] MEDS: NITROFURANTOIN 100MG M/M CAPSULE PO SCH (09:24)
[2018-05-14] MEDS: FOLIC ACID 1MG TABLET PO SCH (09:24)
[2018-05-14] MEDS: DOCUSATE SODIUM 100MG CAPSULE PO SCH ×2 (09:24→16:41)
[2018-05-14] MEDS: CYANOCOBALAMIN 1000MCG/ML VIAL IM SCH (09:27)
[2018-05-14] MEDS: FAMOTIDINE 20MG TABLET PO SCH (09:28)
[2018-05-14] MEDS: ASPIRIN 325MG TABLET PO SCH (09:28)
[2018-05-14] MEDS: LIDOCAINE 5% PATCH TOP SCH (09:31)
[2018-05-14 14:35] VITALS: BP 128/68
[2018-05-14] MEDS: ENOXAPARIN 40MG/0.4ML SYR SUBCUT SCH (16:42)
[2018-05-14] MEDS: FERROUS SULFATE 325MG TABLET PO SCH (16:42)
[2018-05-14 20:00] VITALS: BP 119/70
[2018-05-14] MEDS ORDERED: CEFTAZIDIME PENTAHYDRATE 1 G in DEXTROSE 5% WATER 50 ML IV SCH (20:00)
[2018-05-14] MEDS: POLYETHYLENE GLYCOL 3350 (17GM) 1 DOSE PACK PO SCH (21:00)
[2018-05-15] MEDS: HYDROCODONE/ACETAMINOPHEN 5/325MG TABLET PO PRN ×2 (00:35→09:17)
[2018-05-15 08:00] VITALS: BP 121/75
[2018-05-15] MEDS ORDERED: METHOTREXATE SODIUM 2 . 5MG TABLET PO SCH (09:00)
[2018-05-15] MEDS: ATENOLOL 50 MG TABLET PO SCH (09:00)
[2018-05-15] MEDS: ASPIRIN 325MG TABLET PO SCH (09:12)
[2018-05-15] MEDS: FERROUS SULFATE 325MG TABLET PO SCH ×3 (09:13→16:02)
[2018-05-15] MEDS: DOCUSATE SODIUM 100MG CAPSULE PO SCH ×2 (09:13→16:02)
[2018-05-15] MEDS: ASCORBIC ACID 500 MG TABLET PO SCH (09:14)
[2018-05-15] MEDS: FAMOTIDINE 20MG TABLET PO SCH (09:15)
[2018-05-15] MEDS: FOLIC ACID 1MG TABLET PO SCH (09:15)
[2018-05-15] MEDS: AMLODIPINE 10MG TABLET PO SCH (09:16)
[2018-05-15] MEDS: LIDOCAINE 5% PATCH TOP SCH (09:30)
[2018-05-15] MEDS: CYANOCOBALAMIN 1000MCG/ML VIAL IM SCH (09:33)
[2018-05-15] MEDS: CEFTAZIDIME PENTAHYDRATE 1 G in DEXTROSE 5% WATER 50 ML IV SCH ×2 (09:35→21:28)
[2018-05-15] MEDS: ENOXAPARIN 40MG/0.4ML SYR SUBCUT SCH (16:00)
[2018-05-15 20:00] VITALS: BP 117/69
[2018-05-15] MEDS: POLYETHYLENE GLYCOL 3350 (17GM) 1 DOSE PACK PO SCH (21:00)
[2018-05-15] MEDS: IPRATROPIUM/ALBUTEROL 0.5-3(2.5)MG/3ML NEB HHN SCH (22:09)
[2018-05-15] MEDS: BUDESONIDE 0.5MG/2ML NEB HHN SCH (22:09)
[2018-05-16] MEDS: IPRATROPIUM/ALBUTEROL 0.5-3(2.5)MG/3ML NEB HHN SCH ×3 (03:04→08:27)
[2018-05-16 07:06] LABS: BASOPHILS % 0.8 % (0.0-2.0); EOSINOPHILS % 2.1 % (0.0-5.0); HEMATOCRIT. 30.8 % (36.0-48.0); HEMOGLOBIN. 10.5 g/dL (12.0-16.0); LYMPHOCYTES % 22.3 % (20.0-50.0); MEAN CORPUSCULAR HEMOGLOBIN 29.9 pg (28.0-32.0); MEAN CORPUSCULAR VOLUME 88.1 fL (81.0-99.0); MONOCYTES % 10.3 % (2.0-8.0); NEUTROPHILS % 64.5 % (40.0-76.0); PLATELET 382 x1000/uL (130-400); RED CELL DISTRIBUTION WIDTH 16.5 % (11.6-14.6)
[2018-05-16 07:11] LABS: CHLORIDE 102 mEq/L (98-107)
[2018-05-16 08:20] VITALS: BP 124/76
[2018-05-16] MEDS: BUDESONIDE 0.5MG/2ML NEB HHN SCH (08:26)
[2018-05-16] MEDS: AMLODIPINE 10MG TABLET PO SCH (09:09)
[2018-05-16] MEDS: FOLIC ACID 1MG TABLET PO SCH (09:09)
[2018-05-16] MEDS: FERROUS SULFATE 325MG TABLET PO SCH ×2 (09:09→13:00)
[2018-05-16] MEDS: FAMOTIDINE 20MG TABLET PO SCH (09:09)
[2018-05-16] MEDS: ASPIRIN 325MG TABLET PO SCH (09:10)
[2018-05-16] MEDS: ASCORBIC ACID 500 MG TABLET PO SCH (09:10)
[2018-05-16] MEDS: CYANOCOBALAMIN 1000MCG/ML VIAL IM SCH (09:10)
[2018-05-16] MEDS: ATENOLOL 50 MG TABLET PO SCH (09:10)
[2018-05-16] MEDS: CEFTAZIDIME PENTAHYDRATE 1 G in DEXTROSE 5% WATER 50 ML IV SCH ×2 (09:10→20:33)
[2018-05-16] MEDS: HYDROCODONE/ACETAMINOPHEN 5/325MG TABLET PO PRN ×2 (09:10→20:33)
[2018-05-16] MEDS: DOCUSATE SODIUM 100MG CAPSULE PO SCH ×2 (09:10→17:00)
[2018-05-16] MEDS: LIDOCAINE 5% PATCH TOP SCH (09:11)
[2018-05-16 15:06] LABS: 25-HYDROXY VITAMIN D3 8.3 ng/mL (.)
[2018-05-16] MEDS: ENOXAPARIN 40MG/0.4ML SYR SUBCUT SCH (17:34)
[2018-05-16 20:00] VITALS: BP 108/63
[2018-05-16] MEDS: POLYETHYLENE GLYCOL 3350 (17GM) 1 DOSE PACK PO SCH (20:34)
[2018-05-17 08:00] VITALS: BP 104/75
[2018-05-17] MEDS: AMLODIPINE 10MG TABLET PO SCH (09:00)
[2018-05-17] MEDS: ATENOLOL 50 MG TABLET PO SCH (09:00)
[2018-05-17] MEDS: DOCUSATE SODIUM 100MG CAPSULE PO SCH ×2 (09:19→18:01)
[2018-05-17] MEDS: FAMOTIDINE 20MG TABLET PO SCH (09:19)
[2018-05-17] MEDS: ASPIRIN 325MG TABLET PO SCH (09:19)
[2018-05-17] MEDS: CYANOCOBALAMIN 1000MCG/ML VIAL IM SCH (09:19)
[2018-05-17] MEDS: ASCORBIC ACID 500 MG TABLET PO SCH (09:19)
[2018-05-17] MEDS: CEFTAZIDIME PENTAHYDRATE 1 G in DEXTROSE 5% WATER 50 ML IV SCH ×2 (09:20→21:24)
[2018-05-17] MEDS: FOLIC ACID 1MG TABLET PO SCH (09:20)
[2018-05-17] MEDS: HYDROCODONE/ACETAMINOPHEN 5/325MG TABLET PO PRN (09:22)
[2018-05-17] MEDS: LIDOCAINE 5% PATCH TOP SCH (09:23)
[2018-05-17] MEDS ORDERED: ERGOCALCIFEROL 50000UNITS CAPSULE PO SCH (16:00)
[2018-05-17] MEDS: ENOXAPARIN 40MG/0.4ML SYR SUBCUT SCH (18:01)
[2018-05-17 20:00] VITALS: BP 122/76
[2018-05-17] MEDS: POLYETHYLENE GLYCOL 3350 (17GM) 1 DOSE PACK PO SCH (21:00)
[2018-05-18] MEDS: HYDROCODONE/ACETAMINOPHEN 5/325MG TABLET PO PRN ×2 (00:42→08:55)
[2018-05-18 08:00] VITALS: BP 117/78
[2018-05-18] MEDS: AMLODIPINE 10MG TABLET PO SCH (08:19)
[2018-05-18 08:30] VITALS: BP 117/78
[2018-05-18] MEDS: CEFTAZIDIME PENTAHYDRATE 1 G in DEXTROSE 5% WATER 50 ML IV SCH (08:31)
[2018-05-18] MEDS: FAMOTIDINE 20MG TABLET PO SCH (08:55)
[2018-05-18] MEDS: FOLIC ACID 1MG TABLET PO SCH (08:58)
[2018-05-18] MEDS: DOCUSATE SODIUM 100MG CAPSULE PO SCH ×2 (08:58→17:52)
[2018-05-18] MEDS: ASCORBIC ACID 500 MG TABLET PO SCH (08:58)
[2018-05-18] MEDS: ATENOLOL 50 MG TABLET PO SCH (08:59)
[2018-05-18] MEDS: CYANOCOBALAMIN 1000MCG/ML VIAL IM SCH (09:00)
[2018-05-18] MEDS: ASPIRIN 325MG TABLET PO SCH (09:00)
[2018-05-18] MEDS: LIDOCAINE 5% PATCH TOP SCH (09:02)
[2018-05-18] MEDS: ENOXAPARIN 40MG/0.4ML SYR SUBCUT SCH (17:20)
[2018-05-18 20:00] VITALS: BP 111/67
[2018-05-18] MEDS: POLYETHYLENE GLYCOL 3350 (17GM) 1 DOSE PACK PO SCH (21:00)
[2018-05-19 06:42] LABS: BASOPHILS % 0.5 % (0.0-2.0); EOSINOPHILS % 2.1 % (0.0-5.0); HEMATOCRIT. 29.9 % (36.0-48.0); LYMPHOCYTES % 22.8 % (20.0-50.0); MEAN CORPUSCULAR HEMOGLOBIN 29.5 pg (28.0-32.0); MEAN CORPUSCULAR VOLUME 88.2 fL (81.0-99.0); MEAN PLATELET VOLUME 6.8 fl (7.4-10.4); MONOCYTES % 9.8 % (2.0-8.0); NEUTROPHILS % 64.8 % (40.0-76.0); PLATELET 439 x1000/uL (130-400); RED BLOOD CELL COUNT 3.38 mill/uL (4.2-5.4); RED CELL DISTRIBUTION WIDTH 16.9 % (11.6-14.6)
[2018-05-19 07:03] LABS: CHLORIDE 104 mEq/L (98-107)
[2018-05-19 08:08] VITALS: BP 122/83
[2018-05-19] MEDS: FOLIC ACID 1MG TABLET PO SCH (09:01)
[2018-05-19] MEDS: ASPIRIN 325MG TABLET PO SCH (09:01)
[2018-05-19] MEDS: AMLODIPINE 10MG TABLET PO SCH (09:02)
[2018-05-19] MEDS: FAMOTIDINE 20MG TABLET PO SCH (09:02)
[2018-05-19] MEDS: ATENOLOL 50 MG TABLET PO SCH (09:02)
[2018-05-19] MEDS: DOCUSATE SODIUM 100MG CAPSULE PO SCH ×2 (09:02→17:03)
[2018-05-19] MEDS: ASCORBIC ACID 500 MG TABLET PO SCH (09:02)
[2018-05-19] MEDS: LIDOCAINE 5% PATCH TOP SCH (09:03)
[2018-05-19] MEDS: HYDROCODONE/ACETAMINOPHEN 5/325MG TABLET PO PRN (09:04)
[2018-05-19] MEDS: ENOXAPARIN 40MG/0.4ML SYR SUBCUT SCH (17:03)
[2018-05-19 20:00] VITALS: BP 115/69
[2018-05-19] MEDS: POLYETHYLENE GLYCOL 3350 (17GM) 1 DOSE PACK PO SCH (20:38)
[2018-05-20 08:00] VITALS: BP 126/80
[2018-05-20] MEDS: HYDROCODONE/ACETAMINOPHEN 5/325MG TABLET PO PRN (09:08)
[2018-05-20] MEDS: ASCORBIC ACID 500 MG TABLET PO SCH (09:11)
[2018-05-20] MEDS: ASPIRIN 325MG TABLET PO SCH (09:11)
[2018-05-20] MEDS: DOCUSATE SODIUM 100MG CAPSULE PO SCH ×2 (09:11→17:00)
[2018-05-20] MEDS: ATENOLOL 50 MG TABLET PO SCH (09:11)
[2018-05-20] MEDS: AMLODIPINE 10MG TABLET PO SCH (09:12)
[2018-05-20] MEDS: FAMOTIDINE 20MG TABLET PO SCH (09:12)
[2018-05-20] MEDS: FOLIC ACID 1MG TABLET PO SCH (09:12)
[2018-05-20] MEDS: LIDOCAINE 5% PATCH TOP SCH (09:13)
[2018-05-20] MEDS ORDERED: KETOROLAC 15MG/ML VIAL IM NR (11:30)
[2018-05-20] MEDS ORDERED: PREDNISONE 20MG TABLET PO NR (12:00)
[2018-05-20] MEDS: ENOXAPARIN 40MG/0.4ML SYR SUBCUT SCH (17:37)
[2018-05-20 20:00] VITALS: BP 131/82
[2018-05-20] MEDS: POLYETHYLENE GLYCOL 3350 (17GM) 1 DOSE PACK PO SCH (21:00)
[2018-05-20] MEDS: GUAIFENESIN 600MG ER TABLET PO SCH (21:11)
[2018-05-21 08:00] VITALS: BP 113/62
[2018-05-21] MEDS: LIDOCAINE 5% PATCH TOP SCH (09:00)
[2018-05-21] MEDS: AMLODIPINE 10MG TABLET PO SCH (09:00)
[2018-05-21] MEDS: DOCUSATE SODIUM 100MG CAPSULE PO SCH ×2 (09:00→09:20)
[2018-05-21] MEDS: ATENOLOL 50 MG TABLET PO SCH (09:00)
[2018-05-21] MEDS: HYDROCODONE/ACETAMINOPHEN 5/325MG TABLET PO PRN (09:05)
[2018-05-21] MEDS: ASPIRIN 325MG TABLET PO SCH (09:19)
[2018-05-21] MEDS: FAMOTIDINE 20MG TABLET PO SCH (09:19)
[2018-05-21] MEDS: ASCORBIC ACID 500 MG TABLET PO SCH (09:20)
[2018-05-21] MEDS: FOLIC ACID 1MG TABLET PO SCH (09:20)
[2018-05-21] MEDS: GUAIFENESIN 600MG ER TABLET PO SCH (09:20)
[2018-05-21 10:22] VITALS: BP 113/62
[2018-05-25] MEDS ORDERED: CYANOCOBALAMIN 1000MCG/ML VIAL INJ SCH (09:00)
== END 2018-05-21 13:10 | disposition home health service (06) | DRG 554 ==
PROVIDERS: ADMIT Physical Medicine & Rehabilitation Spinal Cord Injury Medicine; ATTEND Internal Medicine Critical Care Medicine
DX: M17.12 Unilateral primary osteoarthritis, left knee (principal); E46 Unspecified protein-calorie malnutrition; N39.0 Urinary tract infection, site not specified; M32.9 Systemic lupus erythematosus, unspecified; J44.9 Chronic obstructive pulmonary disease, unspecified; I10 Essential (primary) hypertension; Z60.2 Problems related to living alone; K59.00 Constipation, unspecified; B96.5 Pseudomonas (aeruginosa) (mallei) (pseudomallei) as the cause of diseases classified elsewhere; E55.9 Vitamin D deficiency, unspecified; D50.9 Iron deficiency anemia, unspecified; F32.9 Major depressive disorder, single episode, unspecified; K21.9 Gastro-esophageal reflux disease without esophagitis; M06.862 Other specified rheumatoid arthritis, left knee; M21.062 Valgus deformity, not elsewhere classified, left knee; R50.82 Postprocedural fever; E66.9 Obesity, unspecified; Z88.8 Allergy status to other drugs, medicaments and biological substances; Z88.1 Allergy status to other antibiotic agents; Z88.2 Allergy status to sulfonamides; Z79.899 Other long term (current) drug therapy; Z87.891 Personal history of nicotine dependence; Z88.0 Allergy status to penicillin; Z68.29 Body mass index [BMI] 29.0-29.9, adult
CPT/HCPCS: 36415; 71045; 71046; 80048; 82306; 82607; 82728; 82746; 83540; 83550; 83735; 84100; 84134; 84443; 84630; 87077; 87186; 92523; 93970; 94640; 97110; 97116; 97162; 97166; 97530; 97535; C1893; G0515; J0713; J1650; J3420; J7060; J7620; J7626; J8610

== ENCOUNTER → 2018-09-26 | Outpatient (CLI) | payer MEDICARE, MEDICAID ==
[~2018-09-26] MED LIST changes: +BARIUM SULFATE 176 GM SUSP.RECON ONE; +EZ-HD SUSPENSION(BARIUM SULFATE 340GM) PO ONE
== END | disposition home or self-care (01) ==
LOC: RAD 08:44
PROVIDERS: ATTEND Internal Medicine Critical Care Medicine
DX: K44.9 Diaphragmatic hernia without obstruction or gangrene (principal)
CPT/HCPCS: 74220

== ENCOUNTER → 2018-12-06 | Outpatient (CLI) | payer MEDICARE, MEDICAID ==
[~2018-12-06] MED LIST changes: -BARIUM SULFATE 176 GM SUSP.RECON ONE; -EZ-HD SUSPENSION(BARIUM SULFATE 340GM) PO ONE
== END | disposition home or self-care (01) ==
LOC: CT 10:30
PROVIDERS: ATTEND Internal Medicine Critical Care Medicine
DX: I25.10 Atherosclerotic heart disease of native coronary artery without angina pectoris (principal); I05.9 Rheumatic mitral valve disease, unspecified
CPT/HCPCS: 71250

== ENCOUNTER 2019-05-02 09:21 | Day surgery (SDC) | payer MEDICARE, MEDICAID ==
[~2019-05-02] VITALS: Ht 162.6 cm; Wt 80.7 kg
[2019-05-02] MEDS ORDERED: LACTATED RINGERS 1,000 ML IV SCH (10:00)
[2019-05-02] MEDS ORDERED: SIMETHICONE 40 MG/0.6 ML 30ML ONE (13:09)
[2019-05-02] MEDS ORDERED: ONDANSETRON HCL 4MG/2ML INJ ONE (14:25)
[2019-05-02] MEDS ORDERED: ONDANSETRON HCL 4MG/2ML INJ IV NR ×2 (14:30→16:11)
[2019-05-02] MEDS ORDERED: METOCLOPRAMIDE HCL 10MG/2ML VIAL IV SCH (15:30)
== END 2019-05-02 17:00 | disposition home or self-care (01) ==
LOC: OR 09:21
PROVIDERS: ATTEND Internal Medicine Gastroenterology
DX: Z12.11 Encounter for screening for malignant neoplasm of colon (principal); R12 Heartburn; K21.9 Gastro-esophageal reflux disease without esophagitis; K29.30 Chronic superficial gastritis without bleeding; K44.9 Diaphragmatic hernia without obstruction or gangrene; I10 Essential (primary) hypertension; K64.8 Other hemorrhoids; K57.30 Diverticulosis of large intestine without perforation or abscess without bleeding; M19.90 Unspecified osteoarthritis, unspecified site; Z86.010 Personal history of colon polyps; Z79.899 Other long term (current) drug therapy; Z82.49 Family history of ischemic heart disease and other diseases of the circulatory system; Z83.3 Family history of diabetes mellitus
CPT/HCPCS: 43239; 88305; 88312; 88313; G0105; J2405; J2765

== ENCOUNTER → 2019-10-02 | Outpatient (CLI) | payer MEDICARE, MEDICAID ==
[~2019-10-02] MED LIST changes: -AZAT50TA24 PO; -FAMO20TA8 PO; -FURO20TA4 PO; -NAPR-681 PO
== END | disposition home or self-care (01) ==
LOC: US 07:09
PROVIDERS: ATTEND Internal Medicine Critical Care Medicine
DX: E04.1 Nontoxic single thyroid nodule (principal)
CPT/HCPCS: 76536

== ENCOUNTER → 2022-03-01 | Outpatient (CLI) | payer MEDICARE, OTHER | END | disposition home or self-care (01) | LOC: MRI 10:57 | PROVIDERS: ATTEND Internal Medicine Critical Care Medicine | DX: M47.26 Other spondylosis with radiculopathy, lumbar region (principal); M48.061 Spinal stenosis, lumbar region without neurogenic claudication | CPT/HCPCS: 72148 ==

== ENCOUNTER → 2024-03-20 | Outpatient (CLI) | payer MEDICARE, OTHER ==
[~2024-03-20] MED LIST changes: +AMLO10TA80 PO; +DICY-18 PO; +DICY10SO PO; +LEVO250T74 MT; +METH8TAB5 PO; +QUET25TA PO
== END | disposition home or self-care (01) ==
LOC: RAD 12:50
PROVIDERS: ATTEND Internal Medicine Critical Care Medicine
DX: M51.37 Other intervertebral disc degeneration, lumbosacral region (principal); M43.16 Spondylolisthesis, lumbar region; M48.07 Spinal stenosis, lumbosacral region
CPT/HCPCS: 72100

== ENCOUNTER → 2024-04-23 | Outpatient (CLI) | payer MEDICARE, OTHER | END | disposition home or self-care (01) | LOC: RAD 12:48 | PROVIDERS: ATTEND Internal Medicine Critical Care Medicine | DX: M25.562 Pain in left knee (principal) | CPT/HCPCS: 73560 ==

== ENCOUNTER → 2024-10-09 | Outpatient (CLI) | payer MEDICARE, OTHER ==
[~2024-10-09] MED LIST changes: +IOHEXOL-300 100 ML BOTTLE ONE
== END | disposition home or self-care (01) ==
LOC: US 09:28
PROVIDERS: ATTEND Obstetrics & Gynecology Obstetrics
DX: K57.30 Diverticulosis of large intestine without perforation or abscess without bleeding (principal); D27.9 Benign neoplasm of unspecified ovary; D39.0 Neoplasm of uncertain behavior of uterus; K86.89 Other specified diseases of pancreas
CPT/HCPCS: 74178; 76830; 76856; Q9967

== ENCOUNTER → 2024-12-29 | Outpatient (CLI) | payer MEDICARE, OTHER ==
[~2024-12-29] MED LIST changes: -IOHEXOL-300 100 ML BOTTLE ONE
== END | disposition home or self-care (01) ==
LOC: US 09:08
PROVIDERS: ATTEND Internal Medicine Critical Care Medicine
DX: R10.9 Unspecified abdominal pain (principal)
CPT/HCPCS: 76700